=== PATIENT | female | born 1935 | race Caucasian/White ===

== ENCOUNTER 2017-07-30 15:13 | Emergency (ER) | payer MEDICARE, OTHER ==
[2017-07-30 16:33] VITALS: BP 168/78
[2017-07-30] MEDS ORDERED: Acetaminophen/HYDROcodone 325-5 MG Tab PO ONE (16:48)
--- NOTE | 2017-07-30 16:54 | EDM.PDOC ---
ED HPI GENERAL MEDICAL PROBLEM - General Chief Complaint: Back Pain or Injury Stated Complaint: FELL IN FRONT OF CLINIC 07/29/17 Time Seen by Provider: 07/30/17 16:40 Source of Information: Reports: Patient, Family, Old Records History Limitations: Reports: No Limitations - History of Present Illness INITIAL COMMENTS - FREE TEXT/NARRATIVE: 82 yo female here with tail bone pain after falling outside the clinic yesterday. Was not seen before now for this. Took an Aleve without relief. Is normally unsteady on her feet. Has no walker at home. Lives with her . Onset: Sudden Onset Date: 07/29/17 Duration: Hour(s):, Constant Location: Reports: Pelvis (tail bone) Quality: Reports: Ache Severity: Moderate Improves with: Reports: Rest Worsens with: Reports: Other (pressure on the area.) Context: Reports: Trauma (fall) Associated Symptoms: Reports: No Other Symptoms Treatments MANAGER MEDICAL AFFAIRS: Reports: NSAIDS [place] Pain Score (Numeric/FACES): 8 - Related Data Allergies Allergy/AdvReac Type Severity Reaction Status Date / Time amoxicillin Allergy Cannot Verified 07/30/17 17:06 Remember Home Meds: Home Meds Aspirin 325 mg PO DAILY 08/22/13 [History] Calcium Carbonate 1 tab PO BID 08/22/13 [History] Carbidopa-Levodopa 150 mg PO TID 08/22/13 [History] Gabapentin (Phn) 300 mg PO TID 08/22/13 [History] Multiple Vitamin 1 tab PO DAILY 08/22/13 [History] Sertraline Hci 100 mg PO DAILY 08/22/13 [History] Acetaminophen/HYDROcodone [[place] 325-5 MG] 1 tab PO Q4H PRN #30 tab 07/30/17 [Rx ] Social & Family History - Tobacco Use Second Hand Smoke Exposure: No - Alcohol Use Days Per Week of Alcohol Use: 1 Number of Drinks Per Day: 1 Total Drinks Per Week: 1 - Recreational Drug Use Recreational Drug Use: No ED ROS GENERAL - Review of Systems Review Of Systems: See Below Constitutional: Reports: No Symptoms HEENT: Reports: No Symptoms Respiratory: Reports: No Symptoms Cardiovascular: Reports: No Symptoms GI/Abdominal: Reports: No Symptoms : Reports: No Symptoms Musculoskeletal: Reports: No Symptoms Skin: Reports: No Symptoms Neurological: Reports: No Symptoms Psychiatric: Reports: No Symptoms ED EXAM,LOWER BACK PAIN/INJURY - Physical Exam Exam: See Below Exam Limited By: No Limitations General Appearance: Alert, WD/WN, No Apparent Distress Eye Exam: Bilateral Eye: Normal Inspection Ears: Normal External Exam, Normal Canal, Hearing Grossly Normal Nose: Normal Inspection, Normal Mucosa, No Blood Throat/Mouth: Normal Inspection, Normal Lips, Normal Oropharynx, Normal Voice, No Airway Compromise Head: Atraumatic, Normocephalic Neck: Normal Inspection, Supple Respiratory/Chest: No Respiratory Distress, Lungs Clear, Normal Breath Sounds, No Accessory Muscle Use Cardiovascular: Regular Rate, Rhythm GI/Abdominal: Normal Bowel Sounds, Soft, Non-Tender Back Exam: Normal Inspection, Other (coccyx pain, pelvis stable. No hip jt pain. ). No: CVA Tenderness (R), CVA Tenderness (L) Extremities: Normal Inspection, Non-Tender, No Pedal Edema Neurological: Alert, Normal Mood/Affect, CN II-XII Intact, No Motor/Sensory Deficits, Oriented x 3 Psychiatric: Normal Affect, Normal Mood Skin Exam: Warm, Dry, Intact, Normal Color, No Rash Lymphatic: No Adenopathy Course - Vital Signs Text/Narrative:: walked in ER with the aid of a walker. Last Recorded V/S: Last Vital Signs Temp 36.6 C 07/30/17 17:05 Pulse 72 07/30/17 17:05 Resp 16 07/30/17 17:05 BP 168/78 H 07/30/17 17:05 Pulse Ox 97 07/30/17 17:05 - Orders/Labs/Meds Meds: Medications Discontinued Medications Generic Name Dose Route Start Last Admin Trade Name Freq PRN Reason Stop Dose Admin Hydrocodone Bitart/Acetaminophen 1 tab 07/30/17 16:48 07/30/17 17:01 [place] 325-5 Mg PO 07/30/17 16:49 1 tab ONETIME ONE Administration Departure - Departure Time of Disposition: 17:30 Disposition: Home, Self-Care 01 Condition: Good Clinical Impression: Injury of coccyx Qualifiers: Encounter type: initial encounter Qualified Code(s): S39.92XA - Unspecified injury of lower back, initial encounter - Discharge Information Prescriptions: Acetaminophen/HYDROcodone [[place] 325-5 MG] 1 tab PO Q4H PRN #30 tab PRN Reason: Pain Referrals: Andrae Gillis PA-C [Primary Care Provider] - Forms: ED Department Discharge Additional Instructions: Use [place] OR acetaminophen as needed for pain relief. Continue your usual medications. Use a walker to help you walk more safely. Find a soft pillow to sit on for comfort. Recheck with your provider next week.
== END 2017-07-30 18:00 | disposition home or self-care (01) ==
LOC: JP.ED 15:13
DX: S39.92XA Unspecified injury of lower back, initial encounter (principal); Z79.899 Other long term (current) drug therapy; Z79.82 Long term (current) use of aspirin; Z88.1 Allergy status to other antibiotic agents; W19.XXXA Unspecified fall, initial encounter
CPT/HCPCS: 99283; A9270

== ENCOUNTER 2017-08-24 10:40 | Emergency (ER) | payer MEDICARE, OTHER ==
--- NOTE | 2017-08-24 11:30 | EDM.PDOC ---
ED HPI GENERAL MEDICAL PROBLEM - General Chief Complaint: General Stated Complaint: PAIN/MENTAL HEALTH [facility]IA [facility] Time Seen by Provider: 08/24/17 11:28 Source of Information: Reports: Patient History Limitations: Reports: No Limitations - History of Present Illness INITIAL COMMENTS - FREE TEXT/NARRATIVE: pt is very depressed and is feeling hopeless. She was found to have a fracture of the cocyx. Onset: Other ( She fell on the Jul. ) Duration: Day(s): Location: Reports: Pelvis, Other ( evere cocyx pain. ) Associated Symptoms: Reports: No Other Symptoms - Related Data Allergies Allergy/AdvReac Type Severity Reaction Status Date / Time amoxicillin Allergy Cannot Verified 08/24/17 11:15 Remember Home Meds: Home Meds Aspirin 325 mg PO DAILY 08/22/13 [History] Calcium Carbonate 1 tab PO BID 08/22/13 [History] Carbidopa/Levodopa [Carbidopa-Levodopa 25-100] 1.5 tab PO TID 08/22/13 [History] Gabapentin [Neurontin] 300 mg PO TID 08/22/13 [History] Multivitamin with Minerals [Multiple Vitamin] 1 tab PO DAILY 08/22/13 [History] Sertraline [Zoloft] 100 mg PO DAILY 08/22/13 [History] Lidocaine 5% [Lidoderm 5%] 1 patch TOP ASDIRECTED 08/24/17 [History] Melatonin/Pyridoxine HCl (B6) [Melatonin 3 mg Tablet] 1 tab PO BEDTIME 08/24/17 [History] Ondansetron [Zofran ODT] 1 tab PO Q4H PRN 08/24/17 [History] Past Medical History HEENT History: Reports: Impaired Vision Musculoskeletal History: Reports: Arthritis, Fracture, Other (See Below) Other Musculoskeletal History: coccyx fracture Neurological History: Reports: Parkinson's Psychiatric History: Reports: Dementia - Infectious Disease History Infectious Disease History: Reports: Chicken Pox - Past Surgical History HEENT Surgical History: Reports: Cataract Surgery GI Surgical History: Reports: Colonoscopy Social & Family History - Tobacco Use Smoking Status *Q: Never Smoker Second Hand Smoke Exposure: No - Caffeine Use Caffeine Use: Reports: Coffee - Alcohol Use Days Per Week of Alcohol Use: 7 Number of Drinks Per Day: 1 Total Drinks Per Week: 7 - Recreational Drug Use Recreational Drug Use: No ED ROS GENERAL - Review of Systems Review Of Systems: See Below Constitutional: Reports: No Symptoms HEENT: Reports: No Symptoms Respiratory: Reports: No Symptoms Cardiovascular: Reports: No Symptoms Endocrine: Reports: No Symptoms GI/Abdominal: Reports: Constipation, Other (pt hs not had a bm for 2 days. ) : Reports: No Symptoms Musculoskeletal: Reports: Hand Pain Skin: Reports: No Symptoms Neurological: Reports: Other (pt has parkinsons disease. ) Psychiatric: Reports: Depression, Other (pt is not necessarlily feeling suicidal but she is feeling quite hopeless. ) Hematologic/Lymphatic: Reports: No Symptoms ED EXAM, GENERAL - Physical Exam Exam: See Below Free Text/Narrative:: pt arrived feeling very depressed and hopeless. She is concerned that she is not making the progress she would like to. She is not eating and drinking well. She is getting much weaker. Exam Limited By: No Limitations General Appearance: Alert, Anxious, Moderate Distress Ears: Normal TMs Nose: Normal Inspection Throat/Mouth: Normal Inspection Head: Atraumatic Neck: Normal Inspection Respiratory/Chest: No Respiratory Distress Cardiovascular: Regular Rate, Rhythm GI/Abdominal: Soft, Non-Tender (Female) Exam: Deferred Rectal (Female) Exam: Deferred Back Exam: Other (pt is tender over the lower lumbar area. ) Extremities: Normal Inspection Neurological: Alert, Oriented, Normal Cognition Psychiatric: Depressed Mood Course - Vital Signs Last Recorded V/S: Last Vital Signs Temp 36.3 C 08/24/17 10:57 Pulse 63 08/24/17 14:25 Resp 16 08/24/17 14:25 BP 145/72 H 08/24/17 14:25 Pulse Ox 96 08/24/17 14:25 - Orders/Labs/Meds Orders: Active Orders 24 hr Category Date Time Status CULTURE URINE [RM] Stat Lab 08/24/17 13:27 Received Sodium Chloride 0.9% [Normal Saline] 1,000 ml Med 08/24/17 13:00 Active IV ASDIRECTED Medication Orders Sodium Chloride (Normal Saline) 1,000 mls @ 999 mls/hr IV ASDIRECTED SONIA Last Admin: 08/24/17 13:30 Dose: 999 mls/hr Labs: Laboratory Tests 08/24/17 08/24/17 08/24/17 Range/Units 11:25 11:35 11:35 WBC 6.9 (4.5-11.0) K/uL RBC 3.94 (3.30-5.50) M/uL Hgb 10.9 L (12.0-15.0) g/dL Hct 33.4 L (36.0-48.0) % MCV 85 (80-98) fL MCH 28 (27-31) pg MCHC 33 (32-36) % Plt Count 408 H (150-400) K/uL Neut % (Auto) 73 H (36-66) % Lymph % (Auto) 16 L (24-44) % [place] % (Auto) 8 H (2-6) % Eos % (Auto) 3 (2-4) % Baso % (Auto) 0 (0-1) % Sodium 144 (140-148) mmol/L Potassium 4.1 (3.6-5.2) mmol/L Chloride 104 (100-108) mmol/L Carbon Dioxide 31 (21-32) mmol/L Anion Gap 8.8 (5.0-14.0) mmol/L BUN 17 (7-18) mg/dL Creatinine 0.7 (0.6-1.0) mg/dL Est Cr Clr Drug Dosing 48.19 mL/min Estimated GFR (MDRD) > 60 (>60) Glucose 99 (74-106) mg/dL Calcium 8.7 (8.5-10.1) mg/dL Total Bilirubin 0.5 (0.2-1.0) mg/dL AST 19 (15-37) U/L ALT 8 L (12-78) U/L Alkaline Phosphatase 118 H (46-116) U/L Total Protein 6.3 L (6.4-8.2) g/dL Albumin 2.9 L (3.4-5.0) g/dL Globulin 3.4 (2.3-3.5) g/dL Albumin/Globulin Ratio 0.9 L (1.2-2.2) Urine Color Yellow Urine Appearance Slightly cloudy Urine pH 7.0 (4.5-8.0) Ur Specific [place] 1.010 (1.008-1.030) Urine Protein Negative (NEGATIVE) mg/dL Urine Glucose (UA) Normal (NEGATIVE) mg/dL Urine Ketones Negative (NEGATIVE) mg/dL Urine Occult Blood Negative (NEGATIVE) Urine Nitrite Negative (NEGATIVE) Urine Bilirubin Negative (NEGATIVE) Urine Urobilinogen Normal (NORMAL) mg/dL Ur Leukocyte Esterase Moderate (NEGATIVE) Urine RBC Not seen (0-5) Urine WBC 5-10 H (0-5) Ur Epithelial Cells Moderate Amorphous Sediment Rare Urine Bacteria Moderate Urine Mucus Moderate Meds: Medications Generic Name Dose Route Start Last Admin Trade Name Sandra PRN Reason Stop Dose Admin Sodium Chloride 1,000 mls @ 999 mls/hr 08/24/17 13:00 08/24/17 13:30 Normal Saline IV 999 mls/hr ASDIRECTED SONIA Administration Discontinued Medications Generic Name Dose Route Start Last Admin Trade Name Freq PRN Reason Stop Dose Admin Carbidopa/Levodopa 1.5 tab 08/24/17 14:08 08/24/17 14:29 Sinemet 25-100 Mg PO 08/24/17 14:09 1.5 tab ONETIME ONE Administration Gabapentin 300 mg 08/24/17 14:08 08/24/17 14:28 Neurontin PO 08/24/17 14:09 300 mg ONETIME ONE Administration Lidocaine 700 mg 08/24/17 14:19 08/24/17 14:29 Lidoderm 5% TOP 08/24/17 14:20 700 mg ONETIME ONE Administration Magnesium Hydroxide 30 ml 08/24/17 13:33 08/24/17 14:29 Milk Of Magnesia PO 08/24/17 13:34 30 ml ONETIME ONE Administration - Re-Assessments/Exams Free Text/Narrative Re-Assessment/Exam: 08/24/17 12:52 xray reveals no new changes, lab work shows anemia which is chronic for her. Her pain at this time is not severe Departure - Departure Time of Disposition: 15:22 Disposition: DC/Tfer to Shelter [facility] Condition: Fair Clinical Impression: Sacrum and coccyx fracture, Spinal stenosis, UTI (urinary tract infection), Parkinsons disease - Discharge Information Referrals: Andrae Gillis PA-C [Primary Care Provider] - Forms: ED Department Discharge Care Plan Goals: transfer by [facility] - My Orders Last 24 Hours: My Active Orders 08/24/17 13:00 Sodium Chloride 0.9% [Normal Saline] 1,000 ml IV ASDIRECTED 08/24/17 13:27 CULTURE URINE [RM] Stat - Assessment/Plan Last 24 Hours: My Active Orders 08/24/17 13:00 Sodium Chloride 0.9% [Normal Saline] 1,000 ml IV ASDIRECTED 08/24/17 13:27 CULTURE URINE [] Stat
[2017-08-24] MEDS ORDERED: Sodium Chloride 0.9% 1,000 ML IV SCH (13:00)
--- NOTE | 2017-08-24 13:07 | CR ---
Sacrum and coccyx The sacrum and coccyx demonstrate normal alignment. There is no evidence of fracture. There is mild d egenerative spurring at the inferior margins of the SI joints. Impression: 1. Mild degenerative findings of the SI joints.
--- NOTE | 2017-08-24 13:09 | CR ---
L-spine The lumbar vertebrae demonstrate normal alignment. There is a compression fracture of L5 with approxi mately 20% vertebral height loss. There is no evidence of comminution. There is mild vertebral height loss at L3. There is degenerative facet arthropathy at L3/4-L5/S1. Impression: 1. Compression deformities lumbar spine of indeterminate age. 2. Degenerative facet arthropathy.
[2017-08-24] MEDS ORDERED: Magnesium Hydroxide 400 MG/5 ML Susp 30 ML Cup PO ONE (13:33)
[2017-08-24] MEDS ORDERED: Carbidopa/Levodopa 25-100 MG Tab PO ONE (14:08)
[2017-08-24] MEDS ORDERED: Gabapentin 300 MG Cap PO ONE (14:08)
[2017-08-24] MEDS ORDERED: Lidocaine 5% 700 MG Patch TOP ONE (14:19)
[2017-08-24 14:39] VITALS: BP 145/72
[2017-08-24] MEDS ORDERED: Ketorolac 60 MG/2 ML SDV IM ONE (15:55)
[2017-08-24] MEDS ORDERED: Acetaminophen/HYDROcodone 325-5 MG Tab PO ONE (15:55)
== END 2017-08-24 16:13 ==
LOC: JP.ED 10:40
DX: S32.10XA Unspecified fracture of sacrum, initial encounter for closed fracture (principal); S32.2XXA Fracture of coccyx, initial encounter for closed fracture; M48.00 Spinal stenosis, site unspecified; F32.9 Major depressive disorder, single episode, unspecified; N39.0 Urinary tract infection, site not specified; G20 Parkinson's disease; D64.9 Anemia, unspecified; Z88.1 Allergy status to other antibiotic agents; Z79.82 Long term (current) use of aspirin; Z79.899 Other long term (current) drug therapy; W19.XXXA Unspecified fall, initial encounter
CPT/HCPCS: 36415; 72100; 72220; 80053; 81001; 85025; 87086; 96360; 96372; 99285; A9270; J1885; J7040; 99284; J7030

== ENCOUNTER 2019-07-05 10:51 | Emergency (ER) | payer MEDICARE, OTHER ==
--- NOTE | 2019-07-05 11:42 | EDM.PDOC ---
ED HPI GENERAL MEDICAL PROBLEM - General Chief Complaint: Syncope Stated Complaint: MEDICAL [facility]IA [facility] Time Seen by Provider: 07/05/19 11:10 Source of Information: Reports: Patient, EMS, Family History Limitations: Reports: No Limitations - History of Present Illness INITIAL COMMENTS - FREE TEXT/NARRATIVE: 84-year-old female with a history of previous syncopal episodes, also Parkinson' s disease, who was over at the clinic getting hearing aids adjusted. After her clinic visit she was leaving and fainted. She was confused briefly, she was helped into a wheelchair and when they were assessing her she had a second episode of unresponsiveness. They took her vitals, she was hypotensive and an ambulance was called. Fluids were started, in route to the hospital she significantly improved and by the time she was seen in the emergency room she was back to baseline. She was in a sinus rhythm with occasional PVCs, blood pressure was normal and O2 saturations were normal. She does not drive anymore because of concerns of possible syncopal episodes while driving. Patient felt no palpitations or chest pain, no shortness of breath during this episode. No nausea or vomiting. Onset: Sudden Duration: Hour(s): (Within the last hour) Associated Symptoms: Reports: Confusion, Malaise, Weakness. Denies: Fever/ Chills, Loss of Appetite, Nausea/Vomiting, Shortness of Breath Treatments RESEARCH PROFESSOR OF BIOSTATISTICS: Reports: IV/IO Denies Pain Score (Numeric/FACES): 0 - Related Data Allergies Allergy/AdvReac Type Severity Reaction Status Date / Time amoxicillin Allergy Cannot Verified 07/05/19 11:01 Remember Home Meds: Home Meds Calcium Carbonate 1 tab PO BID 08/22/13 [History] Carbidopa/Levodopa [Carbidopa-Levodopa 25-100] 1.5 tab PO TID 08/22/13 [History] Gabapentin [Neurontin] 300 mg PO TID 08/22/13 [History] Multivitamin with Minerals [Multiple Vitamin] 1 tab PO DAILY 08/22/13 [History] Sertraline [Zoloft] 100 mg PO DAILY 08/22/13 [History] Melatonin/Pyridoxine HCl (B6) [Melatonin 3 mg Tablet] 1 tab PO BEDTIME 08/24/17 [History] Aspirin [Halfprin] 81 mg PO DAILY 07/05/19 [History] Past Medical History HEENT History: Reports: Impaired Vision Musculoskeletal History: Reports: Arthritis, Fracture, Other (See Below) Other Musculoskeletal History: coccyx fracture Neurological History: Reports: Parkinson's Psychiatric History: Reports: Dementia - Infectious Disease History Infectious Disease History: Reports: Chicken Pox - Past Surgical History HEENT Surgical History: Reports: Cataract Surgery GI Surgical History: Reports: Colonoscopy Social & Family History - Tobacco Use Smoking Status *Q: Never Smoker Second Hand Smoke Exposure: No - Caffeine Use Caffeine Use: Reports: Coffee - Alcohol Use Days Per Week of Alcohol Use: 0 - Recreational Drug Use Recreational Drug Use: No ED ROS GENERAL - Review of Systems Review Of Systems: See Below Constitutional: Denies: Fever, Chills, Malaise HEENT: Reports: Other (Hard of hearing) Respiratory: Denies: Shortness of Breath Cardiovascular: Denies: Chest Pain, Palpitations GI/Abdominal: Denies: Abdominal Pain, Nausea, Vomiting Skin: Reports: Pallor Neurological: Reports: Confusion (Confusion is resolved), Syncope, Weakness - Physical Exam Exam: See Below Exam Limited By: No Limitations General Appearance: Alert, No Apparent Distress Eye Exam: Bilateral Eye: EOMI Head Exam: Atraumatic Neck: Normal Inspection. No: Carotid Bruit Respiratory/Chest: No Respiratory Distress, Lungs Clear Cardiovascular: Regular Rate, Rhythm, Extra Beats GI/Abdominal: Soft, Non-Tender Neuro Exam (Abbreviated): Alert, Oriented, No Motor/Sensory Deficits Extremities: No: Pedal Edema Psychiatric: Normal Affect, Normal Mood Skin Exam: Warm, Dry Course - Vital Signs Last Recorded V/S: Last Vital Signs Temp 97.9 F 07/05/19 12:30 Pulse 67 07/05/19 12:30 Resp 14 07/05/19 12:30 BP 161/72 H 07/05/19 12:30 Pulse Ox 96 07/05/19 12:30 - Orders/Labs/Meds Labs: Laboratory Tests 07/05/19 07/05/19 Range/Units 11:46 11:46 WBC 4.9 (4.5-11.0) K/uL RBC 3.63 (3.30-5.50) M/uL Hgb 10.2 L (12.0-15.0) g/dL Hct 32.6 L (36.0-48.0) % MCV 90 (80-98) fL MCH 28 (27-31) pg MCHC 31 L (32-36) % Plt Count 234 (150-400) K/uL Neut % (Auto) 70 H (36-66) % Lymph % (Auto) 20 L (24-44) % [place] % (Auto) 7 H (2-6) % Eos % (Auto) 2 (2-4) % Baso % (Auto) 0 (0-1) % Sodium 140 (140-148) mmol/L Potassium 4.0 (3.6-5.2) mmol/L Chloride 103 (100-108) mmol/L Carbon Dioxide 28 (21-32) mmol/L Anion Gap 8.7 (5.0-14.0) mmol/L BUN 21 H (7-18) mg/dL Creatinine 1.0 (0.6-1.0) mg/dL Est Cr Clr Drug Dosing 32.92 mL/min Estimated GFR (MDRD) 53 L (>60) Glucose 84 (74-106) mg/dL Calcium 8.5 (8.5-10.1) mg/dL Total Bilirubin 0.4 (0.2-1.0) mg/dL AST 17 (15-37) U/L ALT 8 L (12-78) U/L Alkaline Phosphatase 51 (46-116) U/L Total Protein 6.6 (6.4-8.2) g/dL Albumin 3.4 (3.4-5.0) g/dL Globulin 3.2 (2.3-3.5) g/dL Albumin/Globulin Ratio 1.1 L (1.2-2.2) - Re-Assessments/Exams Free Text/Narrative Re-Assessment/Exam: 07/05/19 11:43 Cardiac monitoring shows normal sinus rhythm with occasional PVCs. CBC and CMP will be obtained, patient will be kept on cardiac monitoring pending results. If labs are reassuring and she remains in sinus rhythm without symptoms she may be able to be discharged. 07/05/19 12:18 Patient remained stable while in the emergency room without symptoms. Hemoglobin is 10.2, compared to 10.9 18 months ago. Her entire chemistry profile is reassuring. She'll be discharged with a diagnosis of vasovagal syncope, concentrate on staying hydrated, no medication changes, and will return if problems or concerns. Departure - Departure Time of Disposition: 12:31 Disposition: Home, Self-Care 01 Clinical Impression: Vasovagal syncope, Parkinsons disease - Discharge Information Instructions: Syncope, [id number] Referrals: Chidi Foote SOCIAL MEDIA MANAGER [Primary Care Provider] - Forms: ED Department Discharge Care Plan Goals: Concentrate on hydration. No medication changes. Increase activity as tolerated and return anytime if worsening or concerns.
[2019-07-05 12:31] VITALS: BP 161/72; PULSE 67
== END 2019-07-05 12:31 | disposition home or self-care (01) ==
LOC: JP.ED 10:51
DX: R55 Syncope and collapse (principal); G20 Parkinson's disease; F02.80 Dementia in other diseases classified elsewhere, unspecified severity, without behavioral disturbance, psychotic disturbance, mood disturbance, and anxiety; Z88.0 Allergy status to penicillin; Z79.82 Long term (current) use of aspirin; Z79.899 Other long term (current) drug therapy
CPT/HCPCS: 36415; 80053; 85025; 99283; 99285

== ENCOUNTER 2020-10-19 10:04 | Emergency (ER) | payer MEDICARE, OTHER ==
[2020-10-19] MEDS ORDERED: Ketorolac 30 MG/ML SDV IM ONE (10:40)
--- NOTE | 2020-10-19 10:45 | EDM.PDOC ---
ED HPI GENERAL MEDICAL PROBLEM - General Chief Complaint: Lower Extremity Injury/Pain Stated Complaint: MEDICAL VIA AMBULANCE Time Seen by Provider: 10/19/20 10:34 Source of Information: Reports: Patient, Family, RN Notes Reviewed History Limitations: Reports: Physical Impairment - History of Present Illness INITIAL COMMENTS - FREE TEXT/NARRATIVE: 85-year-old female presents emergency department today via EMS services for fall at home, she fell landing on her right hip and now is unable to stand or bear weight significant pain with any movement. She also fell earlier in the week about 2 3 days ago family members are present at that time she fell and hit her head does have bruising over her left orbit states she has had a change in her mental status state. Does have a history of Parkinson's does use a walker at home however states she is not behaving herself - Related Data Allergies Allergy/AdvReac Type Severity Reaction Status Date / Time amoxicillin Allergy Cannot Verified 10/19/20 10:21 Remember Home Meds: Home Meds Calcium Carbonate 1 tab PO BID 08/22/13 [History] Carbidopa/Levodopa [Carbidopa-Levodopa 25-100] 1.5 tab PO TID 08/22/13 [History] Gabapentin [Neurontin] 300 mg PO TID 08/22/13 [History] Multivitamin with Minerals [Multiple Vitamin] 1 tab PO DAILY 08/22/13 [History] Sertraline [Zoloft] 100 mg PO DAILY 08/22/13 [History] Melatonin/Pyridoxine HCl (B6) [Melatonin 3 mg Tablet] 1 tab PO BEDTIME 08/24/17 [History] Aspirin [Halfprin] 81 mg PO DAILY 07/05/19 [History] Past Medical History HEENT History: Reports: Impaired Vision Musculoskeletal History: Reports: Arthritis, Fracture, Other (See Below) Other Musculoskeletal History: coccyx fracture Neurological History: Reports: Parkinson's Psychiatric History: Reports: Dementia - Infectious Disease History Infectious Disease History: Reports: Chicken Pox - Past Surgical History HEENT Surgical History: Reports: Cataract Surgery GI Surgical History: Reports: Colonoscopy Social & Family History - Tobacco Use Tobacco Use Status *Q: Never Tobacco User - Caffeine Use Caffeine Use: Reports: Coffee Review of Systems - Review of Systems Review Of Systems: Unable To Obtain Reason Not Obtained: Dementia, majority of this obtained from family members Constitutional: Reports: No Symptoms Musculoskeletal: Reports: Joint Pain (Left hip) Neurological: Reports: Confusion, Other (Change in mentation) ED EXAM, GENERAL - Physical Exam Exam: See Below Free Text/Narrative:: Does have ecchymosis around the left orbit, follows commands, examination of the right hip I do not appreciate any bruising however she is tender to any movement at all whether it is flexion extension or rotation pedal pulses +2 Exam Limited By: Physical Impairment General Appearance: Alert, No Apparent Distress Eye Exam: Bilateral Eye: Normal Inspection Head: Facial Swelling, Facial Tenderness Neck: Normal Inspection, Supple, Non-Tender, Full Range of Motion Respiratory/Chest: No Respiratory Distress, Lungs Clear, Normal Breath Sounds, No Accessory Muscle Use, Chest Non-Tender Cardiovascular: Regular Rate, Rhythm, No Murmur GI/Abdominal: Soft, Non-Tender Course - Vital Signs Last Recorded V/S: Last Vital Signs Temp 96.8 F L 10/19/20 10:30 Pulse 80 10/19/20 10:30 Resp 14 10/19/20 10:30 BP 148/65 H 10/19/20 10:30 Pulse Ox 94 L 10/19/20 10:30 - Orders/Labs/Meds Orders: Active Orders 24 hr Category Date Time Status EKG Documentation Completion [RC] ASDIRECTED Care 10/19/20 13:09 Ordered CBC WITH AUTO DIFF [HEME] Stat Lab 10/19/20 13:09 Ordered COMPREHENSIVE METABOLIC PN,CMP [CHEM] Stat Lab 10/19/20 13:09 Ordered CORONAVIRUS COVID-19, [facility]ELKA Urgent Lab 10/19/20 13:09 Ordered EKG 12 Lead [EK] Routine Ther 10/19/20 13:09 Ordered Meds: Medications Discontinued Medications Generic Name Dose Route Start Last Admin Trade Name Sandra PRN Reason Stop Dose Admin Ketorolac Tromethamine 30 mg 10/19/20 10:40 Ketorolac 30 Mg/Ml Sdv IM 10/19/20 10:41 ONETIME ONE Ketorolac Tromethamine 15 mg 10/19/20 10:52 10/19/20 10:53 Ketorolac 30 Mg/Ml Sdv IVPUSH 10/19/20 10:53 15 mg ONETIME ONE Administration Departure - Departure Time of Disposition: 13:12 Disposition: DC/Tfer to Acute Hospital 02 Condition: Fair Clinical Impression: Fracture of neck of femur, hip - Discharge Information Referrals: Chidi Foote NP [Primary Care Provider] - Forms: ED Department Discharge Sepsis Event Note (ED) - Evaluation Sepsis Screening Result: No Definite Risk - Focused Exam Vital Signs: Vital Signs Temp Pulse Resp BP Pulse Ox 10/19/20 10:30 96.8 F L 80 14 148/65 H 94 L - My Orders Last 24 Hours: My Active Orders 10/19/20 13:09 EKG Documentation Completion [RC] ASDIRECTED CBC WITH AUTO DIFF [HEME] Stat COMPREHENSIVE METABOLIC PN,CMP [CHEM] Stat CORONAVIRUS COVID-19, VIELKA Urgent EKG 12 Lead [EK] Routine - Assessment/Plan Last 24 Hours: My Active Orders 10/19/20 13:09 EKG Documentation Completion [RC] ASDIRECTED CBC WITH AUTO DIFF [HEME] Stat COMPREHENSIVE METABOLIC PN,CMP [CHEM] Stat CORONAVIRUS COVID-19, VIELKA Urgent EKG 12 Lead [EK] Routine Plan: Assessment Acuity = acute Site and laterality = right femoral neck fracture Etiology = secondary to a fall Manifestations = none Location of injury = Home Lab values = x-ray describes fracture above CT scan of head and maxillofacial bones show no acute process Plan Call discussed case with orthopedics on-call [place] at 1300 can accept the patient in transport requested blood work CBC CMP EKG Covid test prior to transport will be direct admit to [facility] above reported This note was dictated using [employer] voice recognition software please call with any questions on syntax or grammar.
[2020-10-19] MEDS ORDERED: Ketorolac 30 MG/ML SDV IVPUSH ONE (10:52)
--- NOTE | 2020-10-19 12:08 | CT ---
Head wo Cont CLINICAL HISTORY: Fall, mental status change COMPARISON: MR brain October 2012 TECHNIQUE: Transverse scans were obtained from the base of the skull through the vertex without IV contrast on a multislice, multidetector CT scanner. Auto dosage reduction and iterative reconstruction techniques employed. FINDINGS: No focal abnormal parenchymal density is identified. There is no mass effect, hemorrhage, or extraaxial collection. The basal cisterns and sulci over the convexities are prominent. The ventricles are prominent. IMPRESSION: No acute intracranial process Moderate atrophy
--- NOTE | 2020-10-19 12:26 | CT ---
Max Facial Sinus wo Cont : TECHNIQUE: Axial tomographic images were obtained from the upper calvarium through the upper neck without iodinated contrast enhancement. Prescribed dose CLINICAL HISTORY: Left orbital bruising, fall FINDINGS: The bony orbits appear intact. The paranasal sinuses are free of fluid. This some mild mucosal thickening in the left maxillary sinus. There are postsurgical changes in the right maxillary sinus. Zygomatic arches appear intact. Nasal bones are intact. Anterior nasal spine has normal contour. There is minimal leftward deviation of the nasal septum which is chronic. 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
--- NOTE | 2020-10-19 12:33 | CR ---
Hip Min 1V w Pelvis Rt CLINICAL HISTORY: Fall, pain FINDINGS: There is a displaced fracture of the right femoral neck. There is some mild degenerative changes in both hips. Bones appear osteopenic. IMPRESSION: Displaced fracture of the right femoral neck
[2020-10-19 13:50] VITALS: BP 180/81; PULSE 85
== END 2020-10-19 14:13 ==
LOC: JP.ED 10:04
DX: S72.001A Fracture of unspecified part of neck of right femur, initial encounter for closed fracture (principal); S05.12XA Contusion of eyeball and orbital tissues, left eye, initial encounter; G31.83 Neurocognitive disorder with Lewy bodies; F02.80 Dementia in other diseases classified elsewhere, unspecified severity, without behavioral disturbance, psychotic disturbance, mood disturbance, and anxiety; M19.90 Unspecified osteoarthritis, unspecified site; Z88.0 Allergy status to penicillin; Z79.899 Other long term (current) drug therapy; Z79.82 Long term (current) use of aspirin; W19.XXXA Unspecified fall, initial encounter; Y92.009 Unspecified place in unspecified non-institutional (private) residence as the place of occurrence of the external cause
CPT/HCPCS: 36415; 70450; 70450-26; 70486; 70486-26; 73501-26-RT; 73501-RT; 80053; 85025; 93005; 96374; 99285; 99285-25; J1885; U0002

== ENCOUNTER 2021-01-20 10:51 | Emergency (ER) | payer MEDICARE, OTHER ==
[2021-01-20] MEDS ORDERED: Ketorolac 30 MG/ML SDV IVPUSH ONE (11:36)
[2021-01-20] MEDS ORDERED: Sodium Chloride 0.9% 1,000 ML IV SCH (12:45)
--- NOTE | 2021-01-20 13:01 | EDM.PDOC ---
ED HPI GENERAL MEDICAL PROBLEM - General Chief Complaint: Back Pain or Injury Stated Complaint: MED VIA [facility] Time Seen by Provider: 01/20/21 11:02 Source of Information: Reports: Patient, Family History Limitations: Reports: No Limitations - History of Present Illness INITIAL COMMENTS - FREE TEXT/NARRATIVE: 85 yo female with a hx of hip fracture and parkinson presents to the ER today with her and son. She has been home and doing ok until 2 days ago. She was unable to get out of bed yesterday and today because of back pain and she was more confused then her baseline. She has also been loosing weight and this is being followed by her internal medicine doctor. She has appt tomorrow to see IM. She c/o pain in her lower back and hips 09/19 when still but more severe when she moves. - Related Data Allergies Allergy/AdvReac Type Severity Reaction Status Date / Time amoxicillin Allergy Cannot Verified 01/20/21 11:03 Remember Home Meds: Home Meds Calcium Carbonate 1 tab PO BID 08/22/13 [History] Carbidopa/Levodopa [Carbidopa-Levodopa 25-100] 1.5 tab PO TID 08/22/13 [History] Gabapentin [Neurontin] 300 mg PO TID 08/22/13 [History] Multivitamin with Minerals [Multiple Vitamin] 1 tab PO DAILY 08/22/13 [History] Melatonin/Pyridoxine HCl (B6) [Melatonin 3 mg Tablet] 1 tab PO BEDTIME 08/24/17 [History] Alendronate Sodium [Fosamax] 1 tab PO WEEKLY 01/20/21 [History] Past Medical History HEENT History: Reports: Impaired Vision Musculoskeletal History: Reports: Arthritis, Fracture, Other (See Below) Other Musculoskeletal History: coccyx fracture Neurological History: Reports: Parkinson's Psychiatric History: Reports: Dementia - Infectious Disease History Infectious Disease History: Reports: Chicken Pox - Past Surgical History HEENT Surgical History: Reports: Cataract Surgery GI Surgical History: Reports: Colonoscopy Social & Family History - Tobacco Use Tobacco Use Status *Q: Never Tobacco User - Caffeine Use Caffeine Use: Reports: Coffee ED ROS GENERAL - Review of Systems Review Of Systems: See Below Constitutional: Reports: Malaise, Weakness, Fatigue. Denies: Fever Respiratory: Denies: Shortness of Breath, Wheezing, Cough Cardiovascular: Denies: Chest Pain GI/Abdominal: Denies: Abdominal Pain : Reports: Frequency, Other (concentrated, and malodorous) ED EXAM, GI/ABD - Physical Exam Exam: See Below Exam Limited By: No Limitations General Appearance: Alert, No Apparent Distress, Thin Head: Atraumatic, Normocephalic Neck: Normal Inspection, Supple, Non-Tender, Full Range of Motion. No: Lymphadenopathy (R), Lymphadenopathy (L) Respiratory/Chest: No Respiratory Distress, Lungs Clear, Normal Breath Sounds, No Accessory Muscle Use, Chest Non-Tender. No: Crackles, Rhonchi, Wheezing Cardiovascular: Regular Rate, Rhythm, No Murmur GI/Abdominal Exam: Soft, Non-Tender, No Distention Back Exam: Paraspinal Tenderness, Vertebral Tenderness. No: CVA Tenderness (R), CVA Tenderness (L) Extremities: Limited Range of Motion Neurological: Alert, Oriented Psychiatric: Normal Affect, Normal Mood Skin Exam: Warm, Dry, Intact Course - Vital Signs Last Recorded V/S: Last Vital Signs Temp 36.7 C 01/20/21 11:18 Pulse 82 01/20/21 11:18 Resp 14 01/20/21 11:18 BP 129/71 01/20/21 11:18 Pulse Ox 95 01/20/21 11:18 - Orders/Labs/Meds Orders: Active Orders 24 hr Category Date Time Status Carbidopa/Levodopa [Sinemet 25-100 mg] Med 01/20/21 14:02 Once 1.5 tab PO ONETIME ONE Sodium Chloride 0.9% [Normal Saline] 1,000 ml Med 01/20/21 12:45 Ordered IV ASDIRECTED Labs: Laboratory Tests 01/20/21 01/20/21 01/20/21 Range/Units 11:37 11:37 12:23 WBC 4.9 (4.5-11.0) K/uL RBC 4.05 (3.30-5.50) M/uL Hgb 11.2 L (12.0-15.0) g/dL Hct 34.8 L (36.0-48.0) % MCV 86 (80-98) fL MCH 28 (27-31) pg MCHC 32 (32-36) % Plt Count 353 (150-400) K/uL Neut % (Auto) 72.4 H (36-66) % Lymph % (Auto) 18.2 L (24-44) % Josephine % (Auto) 7.0 H (2-6) % Eos % (Auto) 1.6 L (2-4) % Baso % (Auto) 0.8 (0-1) % Sodium 133 L (140-148) mmol/L Potassium 3.9 (3.6-5.2) mmol/L Chloride 96 L (100-108) mmol/L Carbon Dioxide 26 (21-32) mmol/L Anion Gap 14.9 H (5.0-14.0) mmol/L BUN 22 H (7-18) mg/dL Creatinine 0.7 (0.6-1.0) mg/dL Est Cr Clr Drug Dosing TNP Estimated GFR (MDRD) > 60 (>60) Glucose 86 (74-106) mg/dL Calcium 8.6 (8.5-10.1) mg/dL Total Bilirubin 0.7 (0.2-1.0) mg/dL AST 17 (15-37) U/L ALT 9 L (12-78) U/L Alkaline Phosphatase 120 H D (46-116) U/L Total Protein 6.3 L (6.4-8.2) g/dL Albumin 3.4 (3.4-5.0) g/dL Globulin 2.9 (2.3-3.5) g/dL Albumin/Globulin Ratio 1.2 (1.2-2.2) Urine Color Yellow (YELLOW) Urine Appearance Cloudy A (CLEAR) Urine pH 6.0 (5.0-8.0) Ur Specific [place] 1.025 (1.008-1.030) Urine Protein 30 H (NEGATIVE) mg/dL Urine Glucose (UA) Negative (NEGATIVE) mg/dL Urine Ketones Trace H (NEGATIVE) mg/dL Urine Occult Blood Trace-intact H (NEGATIVE) Urine Nitrite Positive H (NEGATIVE) Urine Bilirubin Negative (NEGATIVE) Urine Urobilinogen 0.2 (0.2-1.0) EU/dL Ur Leukocyte Esterase Large H (NEGATIVE) Urine RBC 0-5 (0-5) Urine WBC Packed H (0-5) Ur Epithelial Cells Not seen Amorphous Sediment Not seen Urine Bacteria Many Urine Mucus Not seen Meds: Medications Discontinued Medications Generic Name Dose Route Start Last Admin Trade Name Freq PRN Reason Stop Dose Admin Carbidopa/Levodopa 1.5 tab 01/20/21 14:45 01/20/21 14:45 Carbidopa/Levodopa 25-100 Mg Tab PO 01/20/21 14:46 1.5 tab ONETIME ONE Administration Ciprofloxacin/Dextrose 400 mg/ 200 mls @ 200 mls/hr 01/20/21 13:15 01/20/21 13:26 Premix IV 01/20/21 14:14 200 mls/hr ONETIME ONE Administration Ketorolac Tromethamine 30 mg 01/20/21 11:36 01/20/21 12:14 Ketorolac 30 Mg/Ml Sdv IVPUSH 01/20/21 11:37 30 mg ONETIME ONE Administration - Re-Assessments/Exams Free Text/Narrative Re-Assessment/Exam: 01/20/21 15:13 rest pain control and first dose of antibiotics given in the ER, pt was able to ambulate 5 steps and sit in chair without difficulty. She has appt with IM in the AM. Will discharge on oral antibiotics and pain control for back pain. Departure - Departure Time of Disposition: 15:16 Disposition: Home, Self-Care 01 Condition: Fair Clinical Impression: Acute cystitis with hematuria Back pain Qualifiers: Back pain location: low back pain Chronicity: chronic Back pain laterality: bilateral Sciatica presence: without sciatica Qualified Code(s): M54.5 - Low back pain; G89.29 - Other chronic pain - Discharge Information *PRESCRIPTION DRUG MONITORING PROGRAM REVIEWED*: Not Applicable *COPY OF PRESCRIPTION DRUG MONITORING REPORT IN PATIENT BRIE: Not Applicable Instructions: Chronic Back Pain, [id number] Referrals: Chidi Foote NP [Primary Care Provider] - Forms: ED Department Discharge Additional Instructions: cipro 250 mg twice daily for 3 days Ketorolac 10 mg twice daily as needed for pain follow-up as planned tomorrow with internal medicine Sepsis Event Note (ED) - Evaluation Sepsis Screening Result: No Definite Risk - Focused Exam Vital Signs: Vital Signs Temp Pulse Resp BP Pulse Ox 01/20/21 11:18 36.7 C 82 14 129/71 95 - My Orders Last 24 Hours: My Active Orders 01/20/21 12:45 Sodium Chloride 0.9% [Normal Saline] 1,000 ml IV ASDIRECTED 01/20/21 14:02 Carbidopa/Levodopa [Sinemet 25-100 mg] 1.5 tab PO ONETIME ONE - Assessment/Plan Last 24 Hours: My Active Orders 01/20/21 12:45 Sodium Chloride 0.9% [Normal Saline] 1,000 ml IV ASDIRECTED 01/20/21 14:02 Carbidopa/Levodopa [Sinemet 25-100 mg] 1.5 tab PO ONETIME ONE
[2021-01-20] MEDS ORDERED: Ciprofloxacin in D5W 400 MG in Premix Bag 1 BAG IV ONE ×2 (13:15)
[2021-01-20] MEDS ORDERED: Carbidopa/Levodopa 25-100 MG Tab PO ONE ×2 (14:02→14:45)
[2021-01-20 16:50] VITALS: BP 172/90; PULSE 75
== END 2021-01-20 15:40 | disposition home or self-care (01) ==
LOC: JP.ED 10:51
DX: N30.01 Acute cystitis with hematuria (principal); M54.5 Low back pain; G20 Parkinson's disease; F03.90 Unspecified dementia, unspecified severity, without behavioral disturbance, psychotic disturbance, mood disturbance, and anxiety; Z79.899 Other long term (current) drug therapy; Z88.0 Allergy status to penicillin
CPT/HCPCS: 36415; 80053; 81001; 85025; 87086; 87088; 87186; 96365; 96375; 99283; A9270; J0744; J1885

== ENCOUNTER 2021-02-06 17:31 | Emergency (ER) | payer MEDICARE, OTHER ==
[2021-02-06 18:05] VITALS: BP 173/99
[2021-02-06 18:33] VITALS: PULSE 84
--- NOTE | 2021-02-06 18:45 | EDM.PDOC ---
ED HPI GENERAL MEDICAL PROBLEM - General Chief Complaint: Genitourinary Problem Stated Complaint: CONFUSED Time Seen by Provider: 02/06/21 18:15 Source of Information: Reports: Patient, EMS, Family History Limitations: Reports: No Limitations - History of Present Illness INITIAL COMMENTS - FREE TEXT/NARRATIVE: 85-year-old female with Parkinson's, and recurring UTIs is having a bad day with confusion today which is similar to what she had with her recent UTI. Her wanted her checked for that. Onset: Unknown/Unsure Duration: Waxing/Waning (Symptoms have been ongoing for several weeks) Associated Symptoms: Reports: Other (Patient also has back pain and worsening symptoms of Parkinson's) Lower Back Pain Score (Numeric/FACES): 3 - Related Data Allergies Allergy/AdvReac Type Severity Reaction Status Date / Time amoxicillin Allergy Cannot Verified 02/06/21 18:33 Remember Home Meds: Home Meds Calcium Carbonate 1 tab PO BID 08/22/13 [History] Carbidopa/Levodopa [Carbidopa-Levodopa 25-100] 1.5 tab PO TID 08/22/13 [History] Gabapentin [Neurontin] 300 mg PO TID 08/22/13 [History] Multivitamin with Minerals [Multiple Vitamin] 1 tab PO DAILY 08/22/13 [History] Melatonin/Pyridoxine HCl (B6) [Melatonin 3 mg Tablet] 1 tab PO BEDTIME 08/24/17 [History] Alendronate Sodium [Fosamax] 1 tab PO WEEKLY 01/20/21 [History] Past Medical History HEENT History: Reports: Impaired Vision Musculoskeletal History: Reports: Arthritis, Fracture, Other (See Below) Other Musculoskeletal History: coccyx fracture Neurological History: Reports: Parkinson's Psychiatric History: Reports: Dementia - Infectious Disease History Infectious Disease History: Reports: Chicken Pox Other Infectious Disease History: had covid vacc - Past Surgical History HEENT Surgical History: Reports: Cataract Surgery GI Surgical History: Reports: Colonoscopy Social & Family History - Tobacco Use Tobacco Use Status *Q: Never Tobacco User - Caffeine Use Caffeine Use: Reports: Coffee - Recreational Drug Use Recreational Drug Use: No ED ROS GENERAL - Review of Systems Review Of Systems: See Below Constitutional: Reports: Malaise, Decreased Appetite. Denies: Fever, Chills HEENT: Denies: Vision Change Respiratory: Denies: Shortness of Breath Cardiovascular: Denies: Chest Pain GI/Abdominal: Denies: Abdominal Pain, Nausea, Vomiting Musculoskeletal: Reports: Other (Has no compression fractures, intermittent back spasms) Skin: Reports: Bruising (Patient bruises easily) Neurological: Reports: Confusion, Other (Symptoms of Parkinson's is slowly worsening) Psychiatric: Reports: No Symptoms ED EXAM, GENERAL - Physical Exam Exam: See Below Exam Limited By: No Limitations General Appearance: Alert, No Apparent Distress Eye Exam: Bilateral Eye: Normal Inspection Head: Atraumatic Neck: Supple, Non-Tender Respiratory/Chest: Lungs Clear Cardiovascular: Regular Rate, Rhythm GI/Abdominal: Soft, Non-Tender Extremities: Other (Extremities are thin, scattered bruises are present. No peripheral edema) Neurological: Alert, Oriented, No Motor/Sensory Deficits (Patient now has no confusion, is oriented and neurologically intact) Psychiatric: Flat Affect Course - Vital Signs Last Recorded V/S: Last Vital Signs Temp 96.4 F L 02/06/21 18:28 Pulse 84 02/06/21 18:28 Resp 16 02/06/21 18:28 BP 173/99 H 02/06/21 18:28 Pulse Ox 93 L 02/06/21 18:28 - Orders/Labs/Meds Labs: Laboratory Tests 02/06/21 Range/Units 18:05 Urine Color Yellow (YELLOW) Urine Appearance Clear (CLEAR) Urine pH 7.5 (5.0-8.0) Ur Specific [place] 1.020 (1.008-1.030) Urine Protein Negative (NEGATIVE) mg/dL Urine Glucose (UA) Negative (NEGATIVE) mg/dL Urine Ketones Negative (NEGATIVE) mg/dL Urine Occult Blood Negative (NEGATIVE) Urine Nitrite Negative (NEGATIVE) Urine Bilirubin Negative (NEGATIVE) Urine Urobilinogen 0.2 (0.2-1.0) EU/dL Ur Leukocyte Esterase Negative (NEGATIVE) Urine RBC 0-5 (0-5) Urine WBC 0-5 (0-5) Ur Epithelial Cells Not seen Amorphous Sediment Few Urine Bacteria Rare Urine Mucus Occasional - Re-Assessments/Exams Free Text/Narrative Re-Assessment/Exam: 02/06/21 22:24 A quick cath UA was obtained which was completely normal. Explained to the patient and her that these may be worsening symptoms of Parkinson's that are to be expected as she ages. They will follow up with her primary provider as needed. 2 weeks ago when she was here she had a fairly thorough blood work panel done, this does not need repeating. Departure - Departure Time of Disposition: 19:09 Disposition: Home, Self-Care 01 Clinical Impression: Confusion, Parkinsons disease - Discharge Information Instructions: Confusion Referrals: Chidi Foote [employer]PUTER [employer] INVESTIGATOR [Primary Care Provider] - Forms: ED Department Discharge Care Plan Goals: Continue current medications and activity as tolerated. Consider a recheck with your regular doctor in the next week or so the symptoms persist or you feel she needs further evaluation. Sepsis Event Note (ED) - Evaluation Sepsis Screening Result: No Definite Risk - Focused Exam Vital Signs: Vital Signs Temp Pulse Resp BP Pulse Ox 02/06/21 18:28 96.4 F L 84 16 173/99 H 93 L 02/06/21 18:04 82 173/99 H 92 L 02/06/21 17:32 98.6 F 92 20 163/100 H 94 L
== END 2021-02-06 19:09 | disposition home or self-care (01) ==
LOC: JP.ED 17:31
DX: R41.0 Disorientation, unspecified (principal); G20 Parkinson's disease; Z88.0 Allergy status to penicillin
CPT/HCPCS: 81001; 99285

== ENCOUNTER 2021-04-22 13:06 | Observation (INO) | payer MEDICARE, OTHER ==
--- NOTE | 2021-04-22 14:05 | EDM.PDOC ---
ED HPI GENERAL MEDICAL PROBLEM - General Chief Complaint: General Stated Complaint: MEDICAL VIA [facility] Time Seen by Provider: 04/22/21 13:56 Source of Information: Reports: Family ( ), RN - History of Present Illness INITIAL COMMENTS - FREE TEXT/NARRATIVE: Deana is a 86 year old female whom presents to ER via EMS with and male family member due to failure to thrive and unable to be cared for at home at this time. Deana has a history of UTI about 1 month ago which was treated with antibiotics. Deana was engaged with activities of daily living until about 2-3 days ago. Deana is not longer interested in getting up from bed, taking her medications or activity of daily living. family does not believe she is in pain unless moving around, history of low blood pressure, blood pressure is very high today. Deana is not on medication for blood pressure. - Related Data Allergies Allergy/AdvReac Type Severity Reaction Status Date / Time amoxicillin Allergy Cannot Verified 04/22/21 13:30 Remember rivastigmine Allergy Cannot Verified 04/22/21 13:30 Remember Home Meds: Home Meds Calcium Carbonate 1 tab PO BID 08/22/13 [History] Carbidopa/Levodopa [Carbidopa-Levodopa 25-100] 1.5 tab PO TID 08/22/13 [History] Gabapentin [Neurontin] 300 mg PO TID 08/22/13 [History] Multivitamin with Minerals [Multiple Vitamin] 1 tab PO DAILY 08/22/13 [History] Melatonin/Pyridoxine HCl (B6) [Melatonin 3 mg Tablet] 1 tab PO BEDTIME 08/24/17 [History] Alendronate Sodium [Fosamax] 1 tab PO WEEKLY 01/20/21 [History] Aspirin [Adult Low Dose Aspirin EC] 81 mg PO DAILY 04/22/21 [History] Ferrous Sulfate 325 mg PO DAILY 04/22/21 [History] Sertraline [Zoloft] 200 mg PO DAILY 04/22/21 [History] Past Medical History HEENT History: Reports: Impaired 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: Musculoskeletal History: Reports: Arthritis, Fracture, Other (See Below) Other Musculoskeletal History: coccyx fracture Neurological History: Reports: Parkinson's Psychiatric History: Reports: Dementia - Infectious Disease History Infectious Disease History: Reports: Chicken Pox Other Infectious Disease History: had covid vacc - Past Surgical History HEENT Surgical History: Reports: Cataract Surgery GI Surgical History: Reports: Colonoscopy Social & Family History - Tobacco Use Tobacco Use Status *Q: Never Tobacco User Second Hand Smoke Exposure: No - Caffeine Use Caffeine Use: Reports: None - Recreational Drug Use Recreational Drug Use: No ED ROS GENERAL - Review of Systems Review Of Systems: See Below (no acute concerns in addition to change in behavior.) ED EXAM, GENERAL - Physical Exam Exam: See Below Exam Limited By: Other (Makes good eye contact and response with a few word answer.) General Appearance: Alert, Other (very thin and gaunt in appearance) Eye Exam: Bilateral Eye: Normal Inspection (good eye contact ) Ears: Hearing Grossly Normal (seem to hear conversation) Nose: Normal Inspection Throat/Mouth: Other (very dry mouth noted) Respiratory/Chest: No Respiratory Distress Cardiovascular: Normal Peripheral Pulses, Regular Rate, Rhythm GI/Abdominal: Soft, Non-Tender Extremities: Other (weakness with movement of all extremities) Neurological: Alert, Slow to Respond Psychiatric: Depressed Mood, Flat Affect Skin Exam: Warm, Dry Course - Vital Signs Last Recorded V/S: Last Vital Signs Temp 37.3 C 04/22/21 14:43 Pulse 77 04/22/21 14:43 Resp 14 04/22/21 14:43 BP 121/76 04/22/21 14:43 Pulse Ox 96 04/22/21 14:43 - Orders/Labs/Meds Orders: Active Orders 24 hr Category Date Time Status Patient Status Manage Transfer [TRANSFER] Routine ADT 04/22/21 15:36 Active CULTURE URINE [RM] Stat Lab 04/22/21 14:40 Received cefTRIAXone [Rocephin] 1 gm Med 04/22/21 15:40 Active Sodium Chloride 0.9% [Normal Saline] 50 ml IV ONETIME Resuscitation Status Routine Resus Stat 04/22/21 15:38 Ordered Medication Orders Ceftriaxone Sodium 1 gm/ (Sodium Chloride) 50 mls @ 100 mls/hr IV ONETIME ONE Stop: 04/22/21 16:09 Last Admin: 04/22/21 15:52 Dose: 100 mls/hr Documented by: Labs: Laboratory Tests 04/22/21 04/22/21 04/22/21 Range/Units 14:29 14:29 14:40 WBC 7.8 (4.5-11.0) K/uL RBC 4.08 (3.30-5.50) M/uL Hgb 12.1 (12.0-15.0) g/dL Hct 35.4 L (36.0-48.0) % MCV 87 (80-98) fL MCH 30 (27-31) pg MCHC 34 (32-36) % Plt Count 315 (150-400) K/uL Neut % (Auto) 76.9 H (36-66) % Lymph % (Auto) 13.8 L (24-44) % [place] % (Auto) 8.0 H (2-6) % Eos % (Auto) 0.9 L (2-4) % Baso % (Auto) 0.4 (0-1) % Sodium 129 L (140-148) mmol/L Potassium 3.6 (3.6-5.2) mmol/L Chloride 93 L (100-108) mmol/L Carbon Dioxide 29 (21-32) mmol/L Anion Gap 10.6 (5.0-14.0) mmol/L BUN 20 H (7-18) mg/dL Creatinine 0.7 (0.6-1.0) mg/dL Est Cr Clr Drug Dosing 42.84 mL/min Estimated GFR (MDRD) > 60 (>60) Glucose 93 (74-106) mg/dL Calcium 8.6 (8.5-10.1) mg/dL Total Bilirubin 0.4 (0.2-1.0) mg/dL AST 20 (15-37) U/L ALT 14 (12-78) U/L Alkaline Phosphatase 55 (46-116) U/L Total Protein 6.0 L (6.4-8.2) g/dL Albumin 3.2 L (3.4-5.0) g/dL Globulin 2.8 (2.3-3.5) g/dL Albumin/Globulin Ratio 1.1 L (1.2-2.2) Urine Color Yellow (YELLOW) Urine Appearance Cloudy A (CLEAR) Urine pH 7.0 (5.0-8.0) Ur Specific [place] 1.020 (1.008-1.030) Urine Protein Trace H (NEGATIVE) mg/dL Urine Glucose (UA) Negative (NEGATIVE) mg/dL Urine Ketones Negative (NEGATIVE) mg/dL Urine Occult Blood Trace-intact H (NEGATIVE) Urine Nitrite Positive H (NEGATIVE) Urine Bilirubin Negative (NEGATIVE) Urine Urobilinogen 0.2 (0.2-1.0) EU/dL Ur Leukocyte Esterase Small H (NEGATIVE) Urine RBC 5-10 H (0-5) Urine WBC 10-20 H (0-5) Ur Epithelial Cells Rare Amorphous Sediment Few Urine Bacteria Many Urine Mucus Not seen Meds: Medications Generic Name Dose Route Start Last Admin Trade Name Freq PRN Reason Stop Dose Admin Ceftriaxone Sodium 1 gm/ 50 mls @ 100 mls/hr 04/22/21 15:40 04/22/21 15:52 Sodium Chloride IV 04/22/21 16:09 100 mls/hr ONETIME ONE Administration Discontinued Medications Generic Name Dose Route Start Last Admin Trade Name Freq PRN Reason Stop Dose Admin Sodium Chloride 1,000 mls @ 500 mls/hr 04/22/21 14:15 04/22/21 14:28 Normal Saline IV 500 mls/hr ASDIRECTED SONIA Administration Lorazepam 1 mg 04/22/21 14:42 04/22/21 14:50 Lorazepam 2 Mg/Ml Sdv IVPUSH 04/22/21 14:43 1 mg ONETIME ONE Administration Morphine Sulfate 2 mg 04/22/21 14:42 04/22/21 14:46 Morphine 2 Mg/Ml Syringe IVPUSH 04/22/21 14:43 2 mg ONETIME ONE Administration - Re-Assessments/Exams Free Text/Narrative Re-Assessment/Exam: Case Management Nurse was consulted and presented to ER to discuss care options with patient and assist with arrangements. Rosibel reported that family would appreciate hospice consultation, today which could begin tomorrow. Deana would need care today and overnight. Family requested basic laboratory studies and urine testing to no UTI at this time or any treatable concerns to improve current situation. 04/22/21 14:00 Patient reported leg discomfort with movement and urine catheterization. Morphine 2 mg and Ativan 1mg IV, given for agitation and discomfort. Blood work noting low sodium available, IV fluid discontinued at this time. Updated at bedside regarding laboratory findings of low sodium 129, previously 140 (January) with normal renal, liver function and normal WBC/Hgb. Urine via catheter sample was obtained noting positive Nitrate, small Leukocytes with many bacteria noted. Antibiotic treatment for UTI to be considered. Previous UC from January 2021 was notable to E coli with cephalosporin resistance pattern but sensitive for Rocephin upon further review. Contacted hospitalist regarding respite vs OBS admission for probable admission to hospice services tomorrow at home. 04/22/21 15:36 Departure - Departure Time of Disposition: 15:53 Disposition: Admitted As Inpatient 68 Clinical Impression: Hyponatremia, UTI (urinary tract infection), Parkinsons disease, Frail elderly, End of life care - Discharge Information Referrals: Chidi Foote, SEASONAL CLERK [Primary Care Provider] - Forms: ED Department Discharge Sepsis Event Note (ED) - Evaluation Sepsis Screening Result: No Definite Risk - Focused Exam Vital Signs: Vital Signs Temp Pulse Resp BP Pulse Ox 04/22/21 14:43 37.3 C 77 14 121/76 96 04/22/21 14:31 77 14 121/76 96 04/22/21 13:37 37.3 C 85 16 191/106 H 97 04/22/21 13:19 37.3 C 85 16 191/106 H 97 - My Orders Last 24 Hours: My Active Orders 04/22/21 14:40 CULTURE URINE [RM] Stat 04/22/21 15:40 cefTRIAXone [Rocephin] 1 gm Sodium Chloride 0.9% [Normal Saline] 50 ml IV ONETIME - Assessment/Plan Last 24 Hours: My Active Orders 04/22/21 14:40 CULTURE URINE [RM] Stat 04/22/21 15:40 cefTRIAXone [Rocephin] 1 gm Sodium Chloride 0.9% [Normal Saline] 50 ml IV ONETIME
[2021-04-22] MEDS ORDERED: Sodium Chloride 0.9% 1,000 ML IV SCH (14:15)
[2021-04-22] MEDS ORDERED: Morphine 2 MG/ML SYRINGE IVPUSH ONE (14:42)
[2021-04-22] MEDS ORDERED: LORazepam 2 MG/ML SDV IVPUSH ONE (14:42)
[2021-04-22] MEDS ORDERED: cefTRIAXone 1 GM in Sodium Chloride 0.9% 50 ML IV ONE (15:40)
--- NOTE | 2021-04-22 15:47 | PCM.HP.2 ---
H&P History of Present Illness - General Date of Service: 04/22/21 Admit Problem/Dx: Admission Diagnosis/Problem Admission Diagnosis/Problem Weakness Source of Information: Family, Provider, RN Notes Reviewed. No: Patient History Limitations: Reports: Altered Mental Status (Sedated and lethargic) - History of Present Illness Initial Comments - Free Text/Narative: Ms. Vanessa is an 86-year-old woman who was admitted to observation status through the emergency department because of progressive weakness with urinary tract infection and severe Parkinson's disease. She is unable to provide meaningful information concerning recent symptoms or review of systems because of decreased level of consciousness. She has failed over the past week and become more and more weak. Today she told her that she no longer wanted to take her medications and that she only wanted to be kept comfortable. is unable to care for her at home without additional assistance. There is no current safe discharge plan so she will be admitted to observation status. and son have met with hospice staff while in the emergency department and they have requested discharge to home with hospice care tomorrow. - Related Data Allergies/Adverse Reactions: Allergies Allergy/AdvReac Type Severity Reaction Status Date / Time amoxicillin Allergy Cannot Verified 04/22/21 13:30 Remember rivastigmine Allergy Cannot Verified 04/22/21 13:30 Remember Home Medications: Home Meds Calcium Carbonate 1 tab PO BID 08/22/13 [History] Carbidopa/Levodopa [Carbidopa-Levodopa 25-100] 1.5 tab PO TID 08/22/13 [History] Gabapentin [Neurontin] 300 mg PO TID 08/22/13 [History] Multivitamin with Minerals [Multiple Vitamin] 1 tab PO DAILY 08/22/13 [History] Melatonin/Pyridoxine HCl (B6) [Melatonin 3 mg Tablet] 1 tab PO BEDTIME 08/24/17 [History] Alendronate Sodium [Fosamax] 1 tab PO WEEKLY 01/20/21 [History] Aspirin [Adult Low Dose Aspirin EC] 81 mg PO DAILY 04/22/21 [History] Ferrous Sulfate 325 mg PO DAILY 04/22/21 [History] Sertraline [Zoloft] 200 mg PO DAILY 04/22/21 [History] Past Medical History HEENT History: Reports: Impaired Vision 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: Musculoskeletal History: Reports: Arthritis, Fracture, Other (See Below) Other Musculoskeletal History: coccyx fracture Neurological History: Reports: Parkinson's Psychiatric History: Reports: Dementia - Infectious Disease History Infectious Disease History: Reports: Chicken Pox Other Infectious Disease History: had covid vacc - Past Surgical History HEENT Surgical History: Reports: Cataract Surgery GI Surgical History: Reports: Colonoscopy Social & Family History - Tobacco Use Tobacco Use Status *Q: Never Tobacco User Second Hand Smoke Exposure: No - Caffeine Use Caffeine Use: Reports: None - Recreational Drug Use Recreational Drug Use: No H&P Review of Systems - Review of Systems: Review Of Systems: See Below General: Reports: ROS unobtainable (Decreased level of consciousness) Exam - Exam Exam: See Below - Vital Signs Vital Signs: Last Vital Signs Temp 99.1 F 04/22/21 14:43 Pulse 77 04/22/21 14:43 Resp 14 04/22/21 14:43 BP 121/76 04/22/21 14:43 Pulse Ox 96 04/22/21 14:43 Weight: 100 lb - Exam General: Sedated, Lethargic HEENT: Conjunctiva Clear, Normal Nasal Septum, Posterior Pharynx Clear, Pupils Equal. No: Mucosa Moist & [place] Neck: Supple, Trachea Midline, +2 Carotid Pulse wo Bruit Lungs: Clear to Auscultation, Normal Respiratory Effort Cardiovascular: Regular Rate, Regular Rhythm, Normal S1, Normal S2. No: Systolic Murmur, Diastolic Murmur GI/Abdominal Exam: Soft, Non-Tender, No Organomegaly, No Distention Extremities: Non-Tender, No Pedal Edema Skin: Warm, Dry, Intact Neuro Extensive - Mental Status: Withdraws to Pain - Patient Data Lab Results Last 24 hrs: Laboratory Results - last 24 hr 04/22/21 04/22/21 04/22/21 Range/Units 14:29 14:29 14:40 WBC 7.8 (4.5-11.0) K/uL RBC 4.08 (3.30-5.50) M/uL Hgb 12.1 (12.0-15.0) g/dL Hct 35.4 L (36.0-48.0) % MCV 87 (80-98) fL MCH 30 (27-31) pg MCHC 34 (32-36) % Plt Count 315 (150-400) K/uL Neut % (Auto) 76.9 H (36-66) % Lymph % (Auto) 13.8 L (24-44) % [place] % (Auto) 8.0 H (2-6) % Eos % (Auto) 0.9 L (2-4) % Baso % (Auto) 0.4 (0-1) % Sodium 129 L (140-148) mmol/L Potassium 3.6 (3.6-5.2) mmol/L Chloride 93 L (100-108) mmol/L Carbon Dioxide 29 (21-32) mmol/L Anion Gap 10.6 (5.0-14.0) mmol/L BUN 20 H (7-18) mg/dL Creatinine 0.7 (0.6-1.0) mg/dL Est Cr Clr Drug Dosing 42.84 mL/min Estimated GFR (MDRD) > 60 (>60) Glucose 93 (74-106) mg/dL Calcium 8.6 (8.5-10.1) mg/dL Total Bilirubin 0.4 (0.2-1.0) mg/dL AST 20 (15-37) U/L ALT 14 (12-78) U/L Alkaline Phosphatase 55 (46-116) U/L Total Protein 6.0 L (6.4-8.2) g/dL Albumin 3.2 L (3.4-5.0) g/dL Globulin 2.8 (2.3-3.5) g/dL Albumin/Globulin Ratio 1.1 L (1.2-2.2) Urine Color Yellow (YELLOW) Urine Appearance Cloudy A (CLEAR) Urine pH 7.0 (5.0-8.0) Ur Specific [place] 1.020 (1.008-1.030) Urine Protein Trace H (NEGATIVE) mg/dL Urine Glucose (UA) Negative (NEGATIVE) mg/dL Urine Ketones Negative (NEGATIVE) mg/dL Urine Occult Blood Trace-intact H (NEGATIVE) Urine Nitrite Positive H (NEGATIVE) Urine Bilirubin Negative (NEGATIVE) Urine Urobilinogen 0.2 (0.2-1.0) EU/dL Ur Leukocyte Esterase Small H (NEGATIVE) Urine RBC 5-10 H (0-5) Urine WBC 10-20 H (0-5) Ur Epithelial Cells Rare Amorphous Sediment Few Urine Bacteria Many Urine Mucus Not seen Result Diagrams: 04/22/21 14:29 04/22/21 14:29 Sepsis Event Note - Evaluation Sepsis Screening Result: No Definite Risk - Focused Exam Vital Signs: Vital Signs Temp Pulse Resp BP Pulse Ox 04/22/21 14:43 99.1 F 77 14 121/76 96 04/22/21 14:31 77 14 121/76 96 04/22/21 13:37 99.1 F 85 16 191/106 H 97 04/22/21 13:19 99.1 F 85 16 191/106 H 97 *Q Meaningful Use (ADM) - VTE *Q VTE Pharmacological Contraindications *Q: Not Candidate LT Anticoag - VTE Risk Assess *Q Each Risk Factor Represents 1 Point: None Total Score 1 Point Risk Factors: 0 Each Risk Factor Represents 2 Points: None Total Score 2 Point Risk Factors: 0 Each Risk Factor Represents 3 Points: Age 75 Years or Greater Total Score 3 Point Risk Factors: 3 Each Risk Factor Represents 5 Points: None Total Score 5 Point Risk Factors: 0 Venous Thromboembolism Risk Factor Score *Q: 3 Problem List Initiated/Reviewed/Updated: Yes Orders Last 24hrs: Active Orders 24 hr Category Date Time Status Patient Status Manage Transfer [TRANSFER] Routine ADT 04/22/21 15:36 Ordered CULTURE URINE [RM] Stat Lab 04/22/21 14:40 Received cefTRIAXone [Rocephin] 1 gm Med 04/22/21 15:40 Active Sodium Chloride 0.9% [Normal Saline] 50 ml IV ONETIME Resuscitation Status Routine Resus Stat 04/22/21 15:38 Ordered Medication Orders Ceftriaxone Sodium 1 gm/ (Sodium Chloride) 50 mls @ 100 mls/hr IV ONETIME ONE Stop: 04/22/21 16:09 Assessment/Plan Comment:: ASSESSMENT AND PLAN SEVERE PARKINSON'S DISEASE-she has decided that she does not want further aggressive interventions or evaluation. She is failed significantly over the past week and has requested a move to comfort cares. -Continue outpatient dosing of Sinemet if patient agrees to take it URINARY TRACT INFECTION -Ceftriaxone 1 g IV every 24 hours -Urine culture pending PALLIATIVE CARE-patient does not want further aggressive interventions or evaluation MAINTENANCE ISSUES -DVT prophylaxis; not indicated -GI prophylaxis; not indicated -Rowe catheter; not indicated -Nutrition; regular diet -Nicotine dependence; not required CODE STATUS-DNR/DNI ADMISSION STATUS-this patient will be admitted to observation status, expect no more than a one night hospital stay for evaluation and management of problems as outlined above. DISPOSITION-anticipate discharge to home with hospice care after the hospital stay. PRIMARY CARE PROVIDER-Chidi Foote - Mortality Measure Prognosis:: Poor
[2021-04-22] MEDS ORDERED: LORazepam ORAL Concentrate 1MG/0.5ML U/D BUCCAL PRN (16:40)
[2021-04-22] MEDS ORDERED: Ondansetron 4 MG/2 ML SDV IV PRN (16:40)
[2021-04-22] MEDS ORDERED: Polyethylene Glycol 3350 Powder 17 GM Packet PO PRN (16:40)
[2021-04-22] MEDS ORDERED: Acetaminophen 325 MG Tab PO PRN (16:40)
[2021-04-22] MEDS ORDERED: Sodium Chloride 0.9% 10 ML Syringe FLUSH PRN (16:40)
[2021-04-22] MEDS: Sodium Chloride 0.9% 1,000 ML IV SCH ×2 (17:55→22:15)
[2021-04-22] MEDS: Morphine 10 MG/0.5 ML Oral Syringe PO PRN (22:21)
[2021-04-22] MEDS: Gabapentin 300 MG Cap PO SCH (22:26)
[2021-04-22] MEDS: Carbidopa/Levodopa 25-100 MG Tab PO SCH (22:26)
[2021-04-23] MEDS: Morphine 10 MG/0.5 ML Oral Syringe PO PRN ×4 (01:11→09:56)
[2021-04-23] MEDS ORDERED: hydrALAZINE 20 MG/ML SDV IVPUSH ONE (01:15)
[2021-04-23] MEDS ORDERED: Non-Formulary Medication 1 Each (Sertraline [Zoloft] 100 MG Tablet) PO SCH (09:00)
[2021-04-23] MEDS ORDERED: Sertraline 50 MG Tab PO SCH (09:00)
[2021-04-23] MEDS: Gabapentin 300 MG Cap PO SCH ×2 (09:35→13:59)
[2021-04-23] MEDS: Carbidopa/Levodopa 25-100 MG Tab PO SCH ×2 (09:35→13:59)
[2021-04-23] MEDS ORDERED: Morphine 15 MG Tab PO PRN (10:04)
[2021-04-23 11:18] VITALS: BP 162/79; PULSE 89
[2021-04-23] MEDS: Morphine 10 MG/0.5 ML Oral Syringe BUCCAL PRN ×3 (11:49→14:57)
--- NOTE | 2021-04-23 14:15 | PCM.DCSUM1 ---
Discharge Summary - Hospital Course Brief History: Ms. Vanessa is an 86-year-old woman who was admitted through the emergency department with a recent history of progressive weakness secondary to end-stage Parkinson's and urinary tract infection. - Discharge Data Discharge Date: 04/23/21 Discharge Disposition: DC/Tfer to Hospice - Home 50 Condition: Poor - Referral to Home Health Primary Care Physician: Chidi Foote NP - Discharge Diagnosis/Problem(s) (1) Confusion SNOMED Code(s): 068173752 ICD Code: R41.0 - DISORIENTATION, UNSPECIFIED Status: Acute Current Visit: No (2) End of life care SNOMED Code(s): 788045185, 581078529 ICD Code: Z51.5 - ENCOUNTER FOR PALLIATIVE CARE Status: Acute Current Visit: Yes (3) UTI (urinary tract infection) SNOMED Code(s): 96198130 ICD Code: N39.0 - URINARY TRACT INFECTION, SITE NOT SPECIFIED Status: Acute Current Visit: Yes (4) Parkinsons disease SNOMED Code(s): 26922712 ICD Code: G20 - PARKINSON'S DISEASE Status: Chronic Current Visit: Yes - Patient Summary/Data Hospital Course: Ms. Vanessa is an 86-year-old woman who was admitted to observation status through the emergency department because of progressive weakness with urinary tract infection and severe Parkinson's disease. She is unable to provide meaningful information concerning recent symptoms or review of systems because of decreased level of consciousness. She has failed over the past week and become more and more weak. Today she told her that she no longer wanted to take her medications and that she only wanted to be kept comfortable. is unable to care for her at home without additional assistance. There is no current safe discharge plan so she will be admitted to observation status. and son have met with hospice staff while in the emergency department and they have requested discharge to home with hospice care. On admission morphine and lorazepam were ordered as needed for comfort. She was given IV fluids through the night and IV Rocephin for management of her urinary tract infection. Urine culture had been obtained in the emergency department, results of which are pending at the time of discharge. She will be discharged home with prescriptions for morphine and lorazepam as needed for comfort. Activity will be as tolerated and she will resume her usual diet as tolerated. She will be admitted to hospice care after discharge from the hospital. - Patient Instructions Diet: Usual Diet as Tolerated Activity: As Tolerated Other/Special Instructions: Admitted to hospice after discharge from the hospital - Discharge Plan *PRESCRIPTION DRUG MONITORING PROGRAM REVIEWED*: Not Applicable *COPY OF PRESCRIPTION DRUG MONITORING REPORT IN PATIENT BRIE: Not Applicable Prescriptions/Med Rec: LORazepam [Ativan ORAL Concentrate 1MG/0.5 ML U/D] 0.25 mg BUCCAL Q2H PRN #15 ml PRN Reason: Anxiety cephALEXin [Cephalexin] 250 mg PO Q8H #9 capsule Morphine [Morphine 10 MG/0.5 ML Oral Syringe] 5 mg BUCCAL Q1H PRN #15 ml PRN Reason: Pain (Moderate 4-6) Home Medications: Home Meds Carbidopa/Levodopa [Carbidopa-Levodopa 25-100] 1.5 tab PO TID 08/22/13 [History] Gabapentin [Neurontin] 300 mg PO TID 08/22/13 [History] Sertraline [Zoloft] 200 mg PO DAILY 04/22/21 [History] LORazepam [Ativan ORAL Concentrate 1MG/0.5 ML U/D] 0.25 mg BUCCAL Q2H PRN #15 ml 04/23/21 [Rx] Morphine [Morphine 10 MG/0.5 ML Oral Syringe] 5 mg BUCCAL Q1H PRN #15 ml 04/23/21 [Rx] cephALEXin [Cephalexin] 250 mg PO Q8H #9 capsule 04/23/21 [Rx] Referrals: Chidi Foote, [employer]OUNT[employer] [Primary Care Provider] - - Discharge Summary/Plan Comment DC Time >30 min.: No Total # of Minutes for Discharge Time: 15 - Patient Data Vitals - Most Recent: Last Vital Signs Temp 97.8 F 04/23/21 11:17 Pulse 89 04/23/21 11:17 Resp 16 04/23/21 11:17 BP 162/79 H 04/23/21 11:17 Pulse Ox 96 04/23/21 11:17 Weight - Most Recent: 94 lb 12.78 oz I&O - Last 24 hours: Intake & Output 04/22/21 04/23/21 04/23/21 22:59 06:59 14:59 Intake Total 1271 Balance 1271 Lab Results - Last 24 hrs: Laboratory Results - last 24 hr 04/22/21 04/22/21 04/22/21 Range/Units 14:29 14:29 14:40 WBC 7.8 (4.5-11.0) K/uL RBC 4.08 (3.30-5.50) M/uL Hgb 12.1 (12.0-15.0) g/dL Hct 35.4 L (36.0-48.0) % MCV 87 (80-98) fL MCH 30 (27-31) pg MCHC 34 (32-36) % Plt Count 315 (150-400) K/uL Neut % (Auto) 76.9 H (36-66) % Lymph % (Auto) 13.8 L (24-44) % [place] % (Auto) 8.0 H (2-6) % Eos % (Auto) 0.9 L (2-4) % Baso % (Auto) 0.4 (0-1) % Sodium 129 L (140-148) mmol/L Potassium 3.6 (3.6-5.2) mmol/L Chloride 93 L (100-108) mmol/L Carbon Dioxide 29 (21-32) mmol/L Anion Gap 10.6 (5.0-14.0) mmol/L BUN 20 H (7-18) mg/dL Creatinine 0.7 (0.6-1.0) mg/dL Est Cr Clr Drug Dosing 42.84 mL/min Estimated GFR (MDRD) > 60 (>60) Glucose 93 (74-106) mg/dL Calcium 8.6 (8.5-10.1) mg/dL Total Bilirubin 0.4 (0.2-1.0) mg/dL AST 20 (15-37) U/L ALT 14 (12-78) U/L Alkaline Phosphatase 55 (46-116) U/L Total Protein 6.0 L (6.4-8.2) g/dL Albumin 3.2 L (3.4-5.0) g/dL Globulin 2.8 (2.3-3.5) g/dL Albumin/Globulin Ratio 1.1 L (1.2-2.2) Urine Color Yellow (YELLOW) Urine Appearance Cloudy A (CLEAR) Urine pH 7.0 (5.0-8.0) Ur Specific Ronald 1.020 (1.008-1.030) Urine Protein Trace H (NEGATIVE) mg/dL Urine Glucose (UA) Negative (NEGATIVE) mg/dL Urine Ketones Negative (NEGATIVE) mg/dL Urine Occult Blood Trace-intact H (NEGATIVE) Urine Nitrite Positive H (NEGATIVE) Urine Bilirubin Negative (NEGATIVE) Urine Urobilinogen 0.2 (0.2-1.0) EU/dL Ur Leukocyte Esterase Small H (NEGATIVE) Urine RBC 5-10 H (0-5) Urine WBC 10-20 H (0-5) Ur Epithelial Cells Rare Amorphous Sediment Few Urine Bacteria Many Urine Mucus Not seen SALAZAR Results - Last 24 hrs: Microbiology 04/22/21 14:40 Urine Culture - Preliminary Urine, Catheterized Med Orders - Current: Current Medications Acetaminophen (Acetaminophen 325 Mg Tab) 650 mg PO Q4H PRN PRN Reason: Pain (Mild 1-3)/fever Carbidopa/Levodopa (Carbidopa/Levodopa 25-100 Mg Tab) 1.5 tab PO TID [facility] Last Admin: 04/23/21 13:59 Dose: 1.5 tab Documented by: Gabapentin (Gabapentin 300 Mg Cap) 300 mg PO TID [facility] Last Admin: 04/23/21 13:59 Dose: 300 mg Documented by: Sodium Chloride (Normal Saline) 1,000 mls @ 75 mls/hr IV ASDIRECTED [facility] Last Admin: 04/22/21 22:15 Dose: 75 mls/hr Documented by: Ceftriaxone Sodium 1 gm/ (Sodium Chloride) 50 mls @ 100 mls/hr IV Q24H [facility] Last Admin: 04/23/21 14:05 Dose: 100 mls/hr Documented by: Lorazepam (Lorazepam Oral Concentrate 1mg/0.5ml U/D) 0.25 mg BUCCAL Q2H PRN PRN Reason: Anxiety Last Admin: 04/23/21 00:01 Dose: 0.25 mg Documented by: Morphine Sulfate (Morphine 10 Mg/0.5 Ml Oral Syringe) 5 mg BUCCAL Q1H PRN PRN Reason: Pain (moderate 4-6) Last Admin: 04/23/21 13:57 Dose: 5 mg Documented by: Ondansetron HCl (Ondansetron 4 Mg/2 Ml Sdv) 4 mg IV Q4H PRN PRN Reason: Nausea/Vomiting Polyethylene Glycol (Polyethylene Glycol 3350 Powder 17 Gm Packet) 17 gm PO DAILY PRN PRN Reason: Constipation Sertraline HCl (Sertraline 50 Mg Tab) 200 mg PO DAILY [facility] Last Admin: 04/23/21 09:34 Dose: 200 mg Documented by: Sodium Chloride (Sodium Chloride 0.9% 10 Ml Syringe) 10 ml FLUSH ASDIRECTED PRN PRN Reason: Keep Vein Open Discontinued Medications Hydralazine HCl (Hydralazine 20 Mg/Ml Sdv) 10 mg IVPUSH ONETIME ONE Stop: 04/23/21 01:16 Last Admin: 04/23/21 01:36 Dose: 10 mg Documented by: Sodium Chloride (Normal Saline) 1,000 mls @ 500 mls/hr IV ASDIRECTED [facility] Last Admin: 04/22/21 14:28 Dose: 500 mls/hr Documented by: Ceftriaxone Sodium 1 gm/ (Sodium Chloride) 50 mls @ 100 mls/hr IV ONETIME ONE Stop: 04/22/21 16:09 Last Admin: 04/22/21 15:52 Dose: 100 mls/hr Documented by: Lorazepam (Lorazepam 2 Mg/Ml Sdv) 1 mg IVPUSH ONETIME ONE Stop: 04/22/21 14:43 Last Admin: 04/22/21 14:50 Dose: 1 mg Documented by: Morphine Sulfate (Morphine 2 Mg/Ml Syringe) 2 mg IVPUSH ONETIME ONE Stop: 04/22/21 14:43 Last Admin: 04/22/21 14:46 Dose: 2 mg Documented by: Morphine Sulfate (Morphine 10 Mg/0.5 Ml Oral Syringe) 2.5 mg PO Q1H PRN PRN Reason: Pain Last Admin: 04/23/21 09:56 Dose: 2.5 mg Documented by: - Exam General: Reports: Lethargic Lungs: Reports: Clear to Auscultation, Normal Respiratory Effort Cardiovascular: Reports: Regular Rate, Regular Rhythm, No Murmurs GI/Abdominal Exam: Soft, Non-Tender, No Organomegaly, No Distention *Q Meaningful Use (DIS) - VTE *Q VTE Pharmacological Contraindications *Q: Not Candidate LT Anticoag
[2021-04-23] MEDS ORDERED: cefTRIAXone 1 GM in Sodium Chloride 0.9% 50 ML IV SCH (15:00)
== END 2021-04-23 15:09 | disposition hospice, home (50) ==
LOC: JP.ED 13:06 → JP.MS 15:36
PROVIDERS: ADMIT Hospitalist; ATTEND Hospitalist
DX: G20 Parkinson's disease (principal); N39.0 Urinary tract infection, site not specified; Z88.1 Allergy status to other antibiotic agents; Z88.8 Allergy status to other drugs, medicaments and biological substances; Z79.899 Other long term (current) drug therapy; Z98.890 Other specified postprocedural states; Z79.82 Long term (current) use of aspirin
CPT/HCPCS: 36415; 80053; 81001; 85025; 87086; 87088; 87186; 96365; 96375; 96376; 99285-25; A9270-GY; G0378; J0360; J0696; J2060; J2270; J7030; J7050